=== PATIENT | male | born 1950 | race African-American/Black ===

== ENCOUNTER 2016-12-31 17:03 | Emergency (ER) | payer SELFPAY ==
[~2016-12-31] VITALS: Ht 182.9 cm; Wt 77.0 kg
[2016-12-31] MEDS ORDERED: TETRACAINE 0.5% OPHTH DROPS 4ML RIGHTEYE ONE (19:30)
[2016-12-31] MEDS ORDERED: FLUORESCEIN SODIUM 1MG/STRIP RIGHTEYE ONE (19:45)
[2016-12-31 20:40] VITALS: BP 165/101
== END 2016-12-31 21:45 | disposition home or self-care (01) ==
LOC: ER 17:03
DX: H40.9 Unspecified glaucoma (principal); Z76.0 Encounter for issue of repeat prescription
CPT/HCPCS: 99283; Z7610